=== PATIENT | female | born 1965 ===

== ENCOUNTER 2019-03-24 09:53 | Day surgery (SDC) | payer OTHER ==
[~2019-03-24 09:53] MED LIST: OMEPRAZOLE-BIC1 EAC1 PO; SYNTHROID137 MCG PO
== END 2019-03-24 16:40 | disposition home or self-care (01) ==
LOC: CIR.AMB 09:53
DX: M75.112 Incomplete rotator cuff tear or rupture of left shoulder, not specified as traumatic (principal); M75.22 Bicipital tendinitis, left shoulder; M75.42 Impingement syndrome of left shoulder